=== PATIENT | female | born 1970 | race Hispanic/Latino ===

== ENCOUNTER 2019-12-18 10:49 | Emergency (ER) | payer SELFPAY ==
[2019-12-18 11:17] VITALS: BP 126/72
--- NOTE | 2019-12-18 11:18 | Event Note ---
ED Screening Note Date of service: 12/18/19 Time: 11:15 ED Screening Note: 49 y.o. F. that presents with stabbing low back pain radiating down LLE. Woke up with pain this morning. Denies injury or prior history. This initial assessment/diagnostic orders/clinical plan/treatment(s) is/are subj ect to change based on patients health status, clinical progression and re- assessment by fellow clinical providers in the ED. Further treatment and workup at subsequent clinical providers discretion. Patient/guardian urged not to elope from the ED as their condition may be serious if not clinically assessed and managed. Initial orders include: ACC for further evaluation.
[2019-12-18] MEDS ORDERED: HYDROcodone/ACETAMINOPHEN 7.5-325MG TAB PO ONE (12:28)
[2019-12-18] MEDS ORDERED: dexAMETHasone 20 MG/5 ML VIAL IM ONE (12:28)
--- NOTE | 2019-12-18 12:37 | Emergency Department Report ---
ED Back Pain/Injury HPI - General Chief Complaint: Back Pain/Injury Stated Complaint: BACK PAIN Time Seen by Provider: 12/18/19 11:14 Source: patient Limitations: No Limitations - History of Present Illness Initial Comments: Is a 49-year-old female who woke up this morning with decreased ability to walk. She states that she has a pain in the left lower back with radiation down to her foot. Patient states that she has incredible pain with bearing weight. Pain is 8 out of 10 in severity. She denies bowel or bladder dysfunction. She states there is been no hematuria. Patient states with her job she sits most of the day. MD Complaint: back pain Radiation: buttocks, left leg Severity scale (0 -10): 8 Quality: burning, aching Consistency: constant Improves With: none Worsens With: sitting upright, walking - Related Data Previous Rx's Medication Instructions Recorded Last Taken Type methOCARBAMOL [Robaxin TAB] 500 mg PO Q6H PRN #14 tablet 12/18/19 Unknown Rx predniSONE [Deltasone] 20 mg PO QDAY #5 tab 12/18/19 Unknown Rx traMADoL [Ultram] 50 mg PO Q6HR PRN #12 tablet 12/18/19 Unknown Rx ED Review of Systems ROS: Stated complaint: BACK PAIN Other details as noted in HPI Comment: All other systems reviewed and negative ED Back Pain Physical Exam - Exam General: Vital signs noted. No distress. Alert and acting appropriately. Back/Abdomen: Yes Straight Leg Raise Pain, No Abdominal Tenderness, No Perithoracic Tenderness, No Perilumbar Tenderness, No Sacroiliac Tenderness, No Flank Tenderness Neuro: Yes Normal Sensation, Yes Normal DTR's, Yes Normal Gait, No Motor Weakness ED Course Vital Signs 12/18/19 12/18/19 11:12 11:14 Temperature 98.0 F Pulse Rate 109 H Respiratory 18 Rate Blood Pressure 126/72 [Left] O2 Sat by Pulse 96 Oximetry ED Medical Decision Making - Medical Decision Making Patient appears to have an acute exacerbation of sciatica. Patient given a Decadron shot as well as medication for pain. Patient does appear quite uncomfortable patient will have her pain treated and was started on steroid therapy at home as well will be given follow-up with orthopedic surgery Critical care attestation.: If time is entered above; I have spent that time in minutes in the direct care of this critically ill patient, excluding procedure time. ED Disposition Clinical Impression: Lumbar radiculopathy, acute Disposition: DC-01 TO HOME OR SELFCARE Is pt being admited?: No Does the pt Need Aspirin: No Condition: Stable Instructions: Lumbar Radiculopathy (ED) Referrals: SHUBHAM GARRIDO MD [Staff Physician] - 3-5 Days Time of Disposition: 12:37
== END 2019-12-18 13:37 | disposition home or self-care (01) ==
LOC: EDBD 10:49 → ED 10:49
DX: M54.16 Radiculopathy, lumbar region (principal); M54.42 Lumbago with sciatica, left side; Z98.51 Tubal ligation status
CPT/HCPCS: 96372; 99282; J1100

== ENCOUNTER 2019-12-22 11:57 | Emergency (ER) | payer SELFPAY ==
--- NOTE | 2019-12-22 13:42 | Event Note ---
ED Screening Note Date of service: 12/22/19 Time: 13:40 ED Screening Note: 49 y o female returns to Ed for worsening scaitic never pain radiating down her legs causing difficulty walking was seen 4 days ago, states pain med given not workingf stating cant sleep and walk well and wants to be evaluated actively limping cant stay sitted This initial assessment/diagnostic orders/clinical plan/treatment(s) is/are subject to change based on patients health status, clinical progression and re- assessment by fellow clinical providers in the ED. Further treatment and workup at subsequent clinical providers discretion. Patient/guardian urged not to elope from the ED as their condition may be serious if not clinically assessed and managed. Initial orders include: pain control? acc eval
[2019-12-22 13:44] VITALS: BP 137/84
[2019-12-22] MEDS ORDERED: HYDROcodone/ACETAMINOPHEN 5-325 MG TAB PO STA (17:09)
--- NOTE | 2019-12-22 17:44 | Emergency Department Report ---
ED Back Pain/Injury HPI - General Chief Complaint: Back Pain/Injury Stated Complaint: LOWER BACK PAIN Time Seen by Provider: 12/22/19 17:09 Source: patient Limitations: No Limitations - History of Present Illness MD Complaint: back pain -: days(s), month(s) Similar Symptoms Previously: Yes Place: home Radiation: buttocks Severity: moderate Quality: burning, sharp Consistency: constant, intermittent (But worsens intermittently) Improves With: immobilization, medication Worsens With: movement Associated Symptoms: denies: weakness, chest pain, difficulty walking, cough, incontinence, fever/chills, abdominal pain, nausea/vomiting, rash, seizure, shortness of breath - Related Data Previous Rx's Medication Instructions Recorded Last Taken Type methOCARBAMOL [Robaxin TAB] 500 mg PO Q6H PRN #14 tablet 12/18/19 Unknown Rx predniSONE [Deltasone] 20 mg PO QDAY #5 tab 12/18/19 Unknown Rx traMADoL [Ultram] 50 mg PO Q6HR PRN #12 tablet 12/18/19 Unknown Rx Ketorolac [Toradol] 10 mg PO Q6H PRN #14 tablet 12/22/19 Unknown Rx tiZANidine [Zanaflex 4mg TAB] 4 mg PO Q6HR #20 tablet 12/22/19 Unknown Rx Allergies Allergy/AdvReac Type Severity Reaction Status Date / Time No Known Allergies Allergy Unverified 12/22/19 12:30 ED Review of Systems ROS: Stated complaint: LOWER BACK PAIN Other details as noted in HPI Comment: All other systems reviewed and negative ED Past Medical Hx - Past Medical History Previous Medical History?: No - Surgical History Past Surgical History?: Yes Additional Surgical History: tubal ligation - Social History Smoking Status: Never Smoker - Medications Home Medications: Home Medications Medication Instructions Recorded Confirmed Last Taken Type methOCARBAMOL [Robaxin TAB] 500 mg PO Q6H PRN #14 tablet 12/18/19 Unknown Rx predniSONE [Deltasone] 20 mg PO QDAY #5 tab 12/18/19 Unknown Rx traMADoL [Ultram] 50 mg PO Q6HR PRN #12 tablet 12/18/19 Unknown Rx Ketorolac [Toradol] 10 mg PO Q6H PRN #14 tablet 12/22/19 Unknown Rx tiZANidine [Zanaflex 4mg TAB] 4 mg PO Q6HR #20 tablet 12/22/19 Unknown Rx ED Physical Exam - General Limitations: No Limitations General appearance: alert, in no apparent distress - Head Head exam: Present: atraumatic, normocephalic - Eye Eye exam: Present: normal appearance - ENT ENT exam: Present: mucous membranes moist - Neck Neck exam: Present: normal inspection - Respiratory Respiratory exam: Present: normal lung sounds bilaterally. Absent: respiratory distress - Cardiovascular Cardiovascular Exam: Present: regular rate, normal rhythm. Absent: systolic murmur, diastolic murmur, rubs, gallop - GI/Abdominal GI/Abdominal exam: Present: soft, normal bowel sounds - Extremities Exam Extremities exam: Present: normal inspection - Back Exam Back exam: Present: normal inspection, tenderness, paraspinal tenderness. Absent: CVA tenderness (R), CVA tenderness (L) - Neurological Exam Neurological exam: Present: alert, oriented X3, CN II-XII intact, normal gait - Psychiatric Psychiatric exam: Present: normal affect, normal mood - Skin Skin exam: Present: warm, dry, intact, normal color. Absent: rash ED Course Vital Signs 12/22/19 13:43 Temperature 98.0 F Pulse Rate 95 H Respiratory 18 Rate Blood Pressure 137/84 O2 Sat by Pulse 95 Oximetry ED Medical Decision Making - Medical Decision Making Pt presents the emergency department complaining of back pain most consistent with lumbago back Pain Most Consistent with Strain/Contusion. Differential Diagnosis Includes Lumbar Go Versus Musculoskeletal Spasm, Strain Versus Sciatica. No Back Pain Red Flags on History or Physical. Presentation Not Consistent with Malignancy, Fracture, Cauda Equina, Abdominal Aortic Aneurysm, Viscus Perforation, Pulmonary Embolism, Renal Colic, Pyelonephritis. Patient reports no B symptoms, trauma trauma, incontinence, saddle anesthesia, distal weakness, urinary symptoms and is a febrile. Critical care attestation.: If time is entered above; I have spent that time in minutes in the direct care of this critically ill patient, excluding procedure time. ED Disposition Clinical Impression: Lumbago with sciatica, left side Disposition: DC-01 TO HOME OR SELFCARE Condition: Stable Instructions: Sciatica (ED), Lumbar Radiculopathy (ED), Arthralgia (ED), Piriformis Syndrome (ED) Prescriptions: Ketorolac [Toradol] 10 mg PO Q6H PRN #14 tablet PRN Reason: Pain tiZANidine [Zanaflex 4mg TAB] 4 mg PO Q6HR #20 tablet Referrals: SHUBHAM GARRIDO MD [Staff Physician] - 3-5 Days Forms: Work/School Release Form(ED)
== END 2019-12-22 18:11 | disposition home or self-care (01) ==
LOC: ED 11:57
DX: M54.42 Lumbago with sciatica, left side (principal); Z98.51 Tubal ligation status
CPT/HCPCS: 99282

== ENCOUNTER 2020-01-05 13:12 | Emergency (ER) | payer SELFPAY ==
[2020-01-05 13:22] VITALS: BP 142/84
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
== END 2020-01-05 14:54 | disposition left against medical advice (07) ==
LOC: ED 13:12
DX: R05 Cough (principal); Z53.21 Procedure and treatment not carried out due to patient leaving prior to being seen by health care provider

== ENCOUNTER 2020-09-18 22:06 | Emergency (ER) | payer SELFPAY | END 2020-09-18 23:30 | disposition left against medical advice (07) | LOC: ED 22:06 | DX: M54.5 Low back pain (principal); Z53.21 Procedure and treatment not carried out due to patient leaving prior to being seen by health care provider ==

== ENCOUNTER 2022-04-26 10:55 | Emergency (ER) | payer SELFPAY ==
[2022-04-26 12:37] LABS: Bilirubin,Urine NEG (Negative); Blood,Urine NEG (Negative); Color,Urine Red (Yellow)
[2022-04-26 13:01] LABS: Bacteria,Urine 3+ /HPF (Negative); Calcium Oxalate Crystals,Urine 3+; Mucus,Urine 3+ /HPF
[2022-04-26 13:21] LABS: WBC,Urine > 182.0 /HPF (0.0-6.0)
[2022-04-26] MEDS ORDERED: LIDOCAINE-MPF (1%) 10 MG/1 ML VIAL 5 ML INFILTRATI ONE (14:54)
[2022-04-26] MEDS ORDERED: ACETAMINOPHEN 500 MG TAB PO ONE (14:54)
[2022-04-26] MEDS ORDERED: SODIUM CHLORIDE 0.9% 1000 ML 1,000 ML IV ONE (14:55)
[2022-04-26] MEDS ORDERED: cefTRIAXone/NS 1 GM/50 ML 1 GM/50 ML BAG IV ONE (14:55)
--- NOTE | 2022-04-26 14:56 | Emergency Department Report ---
ED Dysuria HPI - HPI Chief Complaint: Urogenital-Female Stated Complaint: POSSIBLE UTI Time Seen by Provider: 04/26/22 11:06 Duration: 3 Days Location of Discomfort: Urethra (dysuria) Severity: Mild Symptoms: Dysuria: Yes, Frequency: Yes, Suprapubic Pain: Yes, Flank Pain: No, Fever: No, Hematuria: No, Abdominal Pain: No, Previous UTI's: Yes Other History: Ms. Morillo is a pleasant 51-year-old female that comes to the emergency room with dysuria. She has a history of UTIs and states this is how she always feels when she is getting 1. She denies abdominal pain or back pain. She denies any nausea vomiting. She denies fever or chills. She is ambulatory, not ill nontoxic on arrival to the ER. She has been taking [id number] Azo. She has not seen her PCP. ED Review of Systems ROS: Stated complaint: POSSIBLE UTI Other details as noted in HPI Comment: All other systems reviewed and negative ED Past Medical Hx - Past Medical History Previous Medical History?: Yes Additional medical history: uti - Surgical History Past Surgical History?: Yes Additional Surgical History: tubal ligation - Family History Family history: no significant - Social History Smoking Status: Never Smoker Substance Use Type: None - Medications Home Medications: Home Medications Medication Instructions Recorded Confirmed Last Taken Type Sulfamethoxazole/Trimethoprim 1 each PO BID #10 tablet 04/26/22 Unknown Rx [Bactrim DS TAB] Dysuria Exam - Exam General: Vital signs noted. No distress. Alert and acting appropriately. Exam: Yes Moist Mucous Membranes, No CVA Tenderness, No Abdominal Tenderness, No Rigidity or Guarding Labs: Lab Results 04/26/22 Range/Units Unknown Urine Color Red (Yellow) Urine Turbidity Clear (Clear) Urine pH 5.0 (5.0-7.0) Ur Specific [place] 1.029 (1.003-1.030) Urine Protein 100 mg/dl (Negative) mg/dL Urine Glucose (UA) Neg (Negative) mg/dL Urine Ketones Neg (Negative) mg/dL Urine Blood Neg (Negative) Urine Nitrite Pos (Negative) Urine Bilirubin Neg (Negative) Urine Urobilinogen 4.0 (<2.0) mg/dL Ur Leukocyte Esterase Neg (Negative) Urine WBC (Auto) > 182.0 H (0.0-6.0) /HPF Urine RBC (Auto) 71.0 (0.0-6.0) /HPF U Epithel Cells (Auto) 48.0 H (0-13.0) /HPF Urine Bacteria (Auto) 3+ (Negative) /HPF Calcium Oxalate Crystal 3+ Urine Mucus 3+ /HPF Urine Yeast (Budding) 2+ /HPF ED Course Vital Signs 04/26/22 11:07 Temperature 98.4 F Pulse Rate 72 Respiratory 16 Rate Blood Pressure 139/69 [Left] O2 Sat by Pulse 95 Oximetry ED Medical Decision Making - Medical Decision Making Labs 04/26/22 Unknown Urine Color Red Urine Turbidity Clear Urine pH 5.0 Ur Specific [place] 1.029 Urine Protein 100 mg/dl Urine Glucose (UA) Neg Urine Ketones Neg Urine Blood Neg Urine Nitrite Pos Urine Bilirubin Neg Urine Urobilinogen 4.0 Ur Leukocyte Esterase Neg Urine WBC (Auto) > 182.0 H Urine RBC (Auto) 71.0 U Epithel Cells (Auto) 48.0 H Urine Bacteria (Auto) 3+ Calcium Oxalate Crystal 3+ Urine Mucus 3+ Urine Yeast (Budding) 2+ Vital Signs 04/26/22 11:07 Temperature 98.4 F Pulse Rate 72 Respiratory 16 Rate Blood Pressure 139/69 [Left] O2 Sat by Pulse 95 Oximetry UA noted. Patient given a liter of normal saline and a gram of IV Rocephin. Patient has no hypotension, tachycardia or fever. She has no abdominal pain. No back pain. No CVA tenderness. Her pain is not consistent with that of a kidney stone. It is dysuria. She has a history of UTIs. Patient being discharged home on Bactrim. She understands that she needs to see her PCP at completion of the antibiotic to make sure that this is gone away. Patient given a Diflucan for the 2+ budding yeast in her urine. She denies any vaginal discharge. She is perimenopausal. A urine culture is pending if she requires anything more than Bactrim we will need to call her back. Patient being discharged home with discharge plan of care including diet, activity, medications and follow-up. She verbalizes understanding of plan of care. - Differential Diagnosis ro uti/plyo Critical care attestation.: If time is entered above; I have spent that time in minutes in the direct care of this critically ill patient, excluding procedure time. ED Disposition Clinical Impression: UTI (urinary tract infection) Qualifiers: Urinary tract infection type: site unspecified Hematuria presence: with hematuria Qualified Code(s): N39.0 - Urinary tract infection, site not specified; R31.9 - Hematuria, unspecified Disposition: 01 HOME / SELF CARE / HOMELESS Is pt being admited?: No Does the pt Need Aspirin: No Condition: Stable Instructions: Urinary Tract Infection, Adult, [id number] Additional Instructions: Take antibiotics until gone. Then follow-up with primary care to make sure that this is gone away. I have given you referral to primary care below Motrin or Tylenol for pain Stay well-hydrated with water Prescriptions: Sulfamethoxazole/Trimethoprim [Bactrim DS TAB] 1 each PO BID #10 tablet Referrals: TAHIR SOLORZANO MD [Staff Physician] - 3-5 Days Time of Disposition: 15:13
[2022-04-26] MEDS ORDERED: FLUCONAZOLE 100 MG TAB PO ONE (15:35)
[2022-04-26 18:33] VITALS: BP 128/62
== END 2022-04-26 18:33 | disposition home or self-care (01) ==
LOC: ED 10:55
DX: N39.0 Urinary tract infection, site not specified (principal)
CPT/HCPCS: 81001; 87076; 87086; 87186; 96365; 96372; 99283; J7030

== ENCOUNTER 2022-05-18 01:49 | Emergency (ER) | payer SELFPAY ==
[2022-05-18 01:59] VITALS: BP 137/86
[2022-05-18 04:43] LABS: Bacteria,Urine 2+ /HPF (Negative); Mucus,Urine FEW /HPF
--- NOTE | 2022-05-18 04:46 | Emergency Department Report ---
ED Female HPI - General Chief complaint: Abdominal Pain Stated complaint: POSS UTI Time Seen by Provider: 05/18/22 04:24 Source: patient Mode of arrival: Ambulatory Limitations: No Limitations - History of Present Illness Initial comments: Patient 51-year-old female who presents for dysuria x2 weeks. Patient states she was treated on 2021 for same with Bactrim. However symptoms persist there is no fevers, however patient does endorse urinary frequency and urgency. Patient denies vaginal discharge there is no back pain. There is nausea no vomiting. Symptoms are exacerbated by voiding. Symptoms are relieved by nothing tried. MD Complaint: dysuria - Related Data Previous Rx's Medication Instructions Recorded Last Taken Type Sulfamethoxazole/Trimethoprim 1 each PO BID #10 tablet 04/26/22 Unknown Rx [Bactrim DS TAB] Ketorolac [Toradol] 10 mg PO Q6H PRN #12 tab 05/18/22 Unknown Rx levoFLOXacin [Levaquin TAB] 500 mg PO QDAY 7 Days #7 tablet 05/18/22 Unknown Rx Allergies Allergy/AdvReac Type Severity Reaction Status Date / Time No Known Allergies Allergy Verified 04/26/22 17:29 ED Review of Systems ROS: Stated complaint: POSS UTI Other details as noted in HPI Constitutional: denies: chills, fever Eyes: denies: eye pain, eye discharge, vision change ENT: denies: ear pain, throat pain Respiratory: denies: cough, shortness of breath, wheezing Cardiovascular: denies: chest pain, palpitations Endocrine: no symptoms reported Gastrointestinal: nausea. denies: abdominal pain, vomiting, diarrhea, constipation, melena Genitourinary: urgency, dysuria, frequency. denies: hematuria, discharge Musculoskeletal: denies: back pain, joint swelling, arthralgia Skin: denies: rash, lesions Neurological: denies: headache, weakness, paresthesias Psychiatric: denies: anxiety, depression Hematological/Lymphatic: denies: easy bleeding, easy bruising ED Past Medical Hx - Past Medical History Additional medical history: uti - Surgical History Additional Surgical History: tubal ligation - Social History Smoking Status: Never Smoker Substance Use Type: None - Medications Home Medications: Home Medications Medication Instructions Recorded Confirmed Last Taken Type Sulfamethoxazole/Trimethoprim 1 each PO BID #10 tablet 04/26/22 Unknown Rx [Bactrim DS TAB] Ketorolac [Toradol] 10 mg PO Q6H PRN #12 tab 05/18/22 Unknown Rx levoFLOXacin [Levaquin TAB] 500 mg PO QDAY 7 Days #7 tablet 05/18/22 Unknown Rx ED Physical Exam - General Limitations: No Limitations General appearance: alert, in no apparent distress - Head Head exam: Present: normocephalic, normal inspection - Eye Eye exam: Present: EOMI Pupils: Present: normal accommodation - ENT ENT exam: Present: mucous membranes moist - Neck Neck exam: Present: normal inspection, full ROM. Absent: tenderness - Respiratory Respiratory exam: Present: normal lung sounds bilaterally. Absent: respiratory distress, wheezes - Cardiovascular Cardiovascular Exam: Present: regular rate, normal rhythm, normal heart sounds. Absent: systolic murmur, diastolic murmur, rubs, gallop - GI/Abdominal GI/Abdominal exam: Present: soft, normal bowel sounds. Absent: distended, tenderness, guarding, rebound, rigid, bruit, hernia - Rectal Rectal exam: Present: deferred - External exam: Present: other (Deferred per patient) - Extremities Exam Extremities exam: Present: normal inspection, full ROM. Absent: tenderness - Back Exam Back exam: Present: normal inspection, full ROM. Absent: CVA tenderness (R), CVA tenderness (L) - Neurological Exam Neurological exam: Present: alert, oriented X3, CN II-XII intact, normal gait - Expanded Neurological Exam Expanded Patient oriented to: Present: person, place, time Speech: Present: fluid speech Best Eye Response (Reading): (4) open spontaneously Best Motor Response (Lexy): (6) obeys commands Best Verbal Response (Lexy): (5) oriented Reading Total: 15 - Psychiatric Psychiatric exam: Present: normal affect, normal mood - Skin Skin exam: Present: warm, dry, intact, normal color. Absent: rash ED Course Vital Signs 05/18/22 01:52 Temperature 99.0 F Pulse Rate 107 H Respiratory 18 Rate Blood Pressure 137/86 O2 Sat by Pulse 84 Oximetry ED Medical Decision Making - Lab Data Labs 05/18/22 Unknown Urine RBC (Auto) 19.0 U Epithel Cells (Auto) 12.0 Labs 05/18/22 Unknown Urine Color Yellow Urine Turbidity Cloudy Urine pH 6.0 Ur Specific [place] 1.015 Urine Protein >500 Urine Glucose (UA) Negative Urine Ketones 15 Urine Blood 3+ Urine Nitrite Positive Ur Reducing Substances Not Reportable Urine Bilirubin Negative Urine Ictotest Not Reportable Urine Urobilinogen 2.0 Ur Leukocyte Esterase Large Urine WBC (Auto) > 182.0 H Urine RBC (Auto) 19.0 U Epithel Cells (Auto) 12.0 Urine Bacteria (Auto) 2+ Urine Mucus Few - Medical Decision Making Patient advises history of recurring UTI. UA noted as above patient declines further work-up advises she does not believe she has a renal stone. Patient treated with Rocephin IM in ED. Will DC to home with Levaquin. Patient will continue to follow-up with primary care doctor. Patient advised to return to emergency department should symptoms worsen or persist. Patient is currently alert oriented x3 patient pain is improved, patient is tolerating p.o. intake without nausea vomiting. Patient appears with no acute distress and nontoxic. Patient advised to return to ED should symptoms persist or worsen. Critical care attestation.: If time is entered above; I have spent that time in minutes in the direct care of this critically ill patient, excluding procedure time. ED Disposition Clinical Impression: UTI (urinary tract infection) Qualifiers: Urinary tract infection type: acute cystitis Hematuria presence: without hematuria Qualified Code(s): N30.00 - Acute cystitis without hematuria Disposition: HOME / SELF CARE / HOMELESS Is pt being admited?: No Does the pt Need Aspirin: No Condition: Stable Instructions: Abdominal Pain (ED), Urinary Tract Infection, Adult Additional Instructions: Take medications as prescribed, follow-up with your primary care doctor in 2 to 3 days. Return to emergency department should symptoms worsen. Prescriptions: levoFLOXacin [Levaquin TAB] 500 mg PO QDAY 7 Days #7 tablet Ketorolac [Toradol] 10 mg PO Q6H PRN #12 tab PRN Reason: Pain Referrals: TAHIR SOLORZANO MD [Staff Physician] - 3-5 Days Forms: Work/School Release Form(ED) Time of Disposition: 06:15
[2022-05-18 04:51] LABS: Bilirubin,Urine Negative (Negative); Blood,Urine 3+ (Negative); Color,Urine Yellow (Yellow); Protein,Urine >500 mg/dL (Negative); WBC,Urine > 182.0 /HPF (0.0-6.0)
[2022-05-18] MEDS ORDERED: LIDOCAINE-MPF (1%) 10 MG/1 ML VIAL 5 ML INFILTRATI ONE (06:09)
== END 2022-05-18 06:42 | disposition home or self-care (01) ==
LOC: ED 01:49
DX: N39.0 Urinary tract infection, site not specified (principal)
CPT/HCPCS: 81001; 96372; 99283; J0696; J3490